=== PATIENT | female | born 1965 | race Caucasian/White ===

== ENCOUNTER 2016-07-27 16:20 | Outpatient (CLI) | payer MEDICAID ==
[~2016-07-27 16:20] MED LIST: ALBU17AE3; ALBU17AE3 IH; ALBU8.5H2 IH; ALBUTERAL NEB; ALBUTEROL NEB; AMPH30TA2 PO; ASP325TEC PO; ATOR10TA66 PO; ATR20T PO; CEPH500C PO; CTLP20T; DESV50TA; ENLP5T; FEXO180T; FRSM40T; GLMP4T PO; GUAI-371; HCTZ12.5T; INSASP10V SC; INSASP10V SQ; INSU100C4; INSU100V5 SQ; INSU100V7 SQ; INSU100V8; KCL10CCR; LIRA0.6P SQ; LIRA0.6P3 SQ; LISI20TA PO; LVT.112T; LVT.1T; METF-380 PO; METF1000 PO; METO25TA PO; MGX400T; MGX400T PO; MNTL10T; MTF500T; MTP25TSR PO; OMG1KC PO; OXYC-12 PO; PNT40TEC PO; POTA10TA36 PO; PRV20T PO; SERT100T PO; SPRN25T GT; SRTR100T PO; [UNRECOGNIZED DRUG - OTHER]; [UNRECOGNIZED DRUG - OTHER]
== END 2016-07-27 16:45 | disposition home or self-care (01) ==
LOC: SLEEP 16:20
PROVIDERS: ATTEND Nurse Practitioner Family
DX: G47.33 Obstructive sleep apnea (adult) (pediatric) (principal); E66.01 Morbid (severe) obesity due to excess calories

== ENCOUNTER → 2017-06-07 | Outpatient (CLI) | payer MEDICAID ==
[~2017-06-07] MED LIST changes: +ACET-2267 PO; +APIX5TAB PO; +BUPR200T PO; +CARV25TA PO; +MULT-35 PO; +PANT40TA3 PO; +RT-ALBUINH IH; +SERT100T8 PO
--- NOTE | 2017-06-07 09:59 | Diagnostic Imaging Report ---
INDICATION: Routine screening. The current study was also evaluated with a Computer Aided Detection (CAD) system. Comparison is made with prior exam from 06/07/2015 and 09/06/2013. Scattered fibroglandular densities are identified bilaterally. Cardiac monitoring device in the posterior medial left breast remains in place. A benign-appearing nodular density in the central left breast appears stable. No new mass or malignant appearing microcalcifications are seen. There are benign calcifications present. The axillae are unremarkable. IMPRESSION: No mammographic features suspicious for malignancy identified. ACR BI-RADS Category 2: Benign findings. Result letter will be mailed to the patient. Note: At least 10% of breast cancer is not imaged by mammography. Dictated by: Dictated on workstation # [id number]
== END ==
LOC: RAD 08:07
PROVIDERS: ATTEND Nurse Practitioner Community Health
DX: Z12.31 Encounter for screening mammogram for malignant neoplasm of breast (principal)
CPT/HCPCS: 77067

== ENCOUNTER 2018-04-25 17:40 | Emergency (ER) | payer BC, MEDICAID ==
[~2018-04-25] VITALS: Ht 170.2 cm; Wt 167.8 kg
[2018-04-25] MEDS ORDERED: ASPIRIN 81 MG CHEW (CHILDREN'S ASA) PO ONE (18:00)
[2018-04-25 18:06] LABS: BASOPHILS % (AUTO) 1 % (0-10); EOSINOPHILS # (AUTO) 0.2 10^3/uL (0.0-0.3); EOSINOPHILS % (AUTO) 2 % (0-10); HEMATOCRIT 37 % (35-52); HEMOGLOBIN 12.5 G/DL (11.5-16.0); LYMPHOCYTES # (AUTO) 1.9 X 10^3 (1.0-4.0); LYMPHOCYTES % (AUTO) 23 % (12-44); MEAN CORPUSCULAR HGB CONC 34 G/DL (32-36); MEAN CORPUSCULAR VOLUME 87 FL (80-99); MEAN PLATELET VOLUME 10.2 FL (7.4-10.4); MONOCYTES # (AUTO) 0.4 X 10^3 (0.0-1.0); MONOCYTES % (AUTO) 5 % (0-12); NEUTROPHILS # (AUTO) 5.9 X 10^3 (1.8-7.8); NEUTROPHILS % (AUTO) 70 % (42-75); PLATELET COUNT 195 10^3/uL (130-400); WHITE BLOOD COUNT 8.5 10^3/uL (4.3-11.0)
--- NOTE | 2018-04-25 18:08 | ED Chest Pain ---
General Chief Complaint: Chest Pain Stated Complaint: CHEST PAIN Nursing Triage Note: PT REPORTED WAKING UP WITH CHEST PAIN THIS MORNING THAT STARTED AT 0600. 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 THIS EVENING PT WAS STILL HAVING CHEST PAIN AND HAD 2 EKGS TAKEN AND SENT OVER TO ER. Nursing Sepsis Screen: No Definite Risk Source: patient Exam Limitations: no limitations History of Present Illness Date Seen by Provider: Apr 25, 2018 Time Seen by Provider: 17:51 Initial Comments The patient presents to the ER by private conveyance with chief complaint she's been having some dull achy 6 out of 10 consistent chest pain in the center of her chest that does not radiate. She describes it as feeling like a large weight sitting on her chest. She woke up this morning with the pain about 12 hours prior to arrival. 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 She does not have a history of coronary disease although she has had a heart catheter in the pastwere placed. She is known to Dr. Hayward. She has a history of paroxysmal atrial fibrillation and is routinely on Eliquis however for the last month she has not been taking her Eliquis just all of her other medicines due to cost. She does not take aspirin or Plavix. She does have a history of asthma when she was young but she does not feel wheezy or short of breath. She wears a BiPAP at night. She says she just felt "yucky" all day. When her staff caught on the way she was behaving they ran a couple EKGs and did not find anything interesting and insisted that she come to the ER. She's had no fevers, chills, fatigue, dysuria, nausea, sweats, cough, diarrhea or constipation. She felt a little more swelling in her hands or feet today than usual. The patient does have a history of anxiety but she does not use anything for it. She has a history of GERD and is on pantoprazole. She does not notice that eating certain things makes her chest discomfort any worse. She does state that exertion which for her is minimal makes it worse. The patient has had gastric bypass and noted that a lot of her obesity hypoventilation syndrome improved after weight loss. Patient reports she had a Lync device implanted but it malfunctioned last year and is no longer working. Allergies and Home Medications Allergies Coded Allergies: sulfamethoxazole (Unverified Allergy, Unknown, 05/04/14) trimethoprim (Unverified Allergy, Unknown, 05/04/14) Home Medications Acetaminophen 500 Mg Tablet, 500-1,000 MG PO Q6H PRN for PAIN-MILD, (Reported) Albuterol Sulfate 1 Puff Puff, 2 PUFF IH Q4H PRN for SHORTNESS OF BREATH, ( Reported) 1 PUFF = 90 MCG Apixaban 5 Mg Tablet, 5 MG PO BID, (Reported) LAST FILLED #60 09-30-16 Bupropion HCl 200 Mg Tablet.er, 200 MG PO BID, (Reported) LAST FILLED #60 07-21-16 Carvedilol 25 Mg Tablet, 25 MG PO BID, (Reported) LAST FILLED #180 08-18-16 Lisinopril 20 Mg Tablet, 20 MG PO DAILY, (Reported) LAST FILLED #90 08-18-16 Multivitamin 1 Each Tablet, 1 TAB PO DAILY, (Reported) Pantoprazole Sodium 40 Mg Tablet.dr, 40 MG PO DAILY, (Reported) LAST FILLED #90 06-19-16 Sertraline HCl 100 Mg Tablet, 100 MG PO BID, (Reported) LAST FILLED #60 09-30-16 Patient Home Medication List Home Medication List Reviewed: Yes Review of Systems Review of Systems Constitutional: No chills, No dizziness, No fever, No malaise EENTM: No Blurred Vision, No Double Vision Respiratory: Denies Cough, Denies Shortness of Air, Denies SOA at Rest, Denies Wheezing Cardiovascular: See HPI, Chest Pain, Edema; Denies Irregular Heart Rate, Denies Lightheadedness, Denies Palpitations, Denies Syncope Gastrointestinal: Denies Abdominal Pain, Denies Constipated, Denies Diarrhea, Denies Nausea Genitourinary: Denies Burning, Denies Discharge Musculoskeletal: No back pain, No joint pain Skin: No pruritus, No rash Psychiatric/Neurological: Denies Headache, Denies Numbness, Denies Paresthesia Past Zbnlznn-Rilcsy-Zqnidt Hx Patient Social History Alcohol Use: Denies Use Recreational Drug Use: No Smoking Status: Former Smoker Type Used: Cigarettes Former Smoker, Quit: Nov 22, 1998 Recent Foreign Travel: No Contact w/Someone Who Travel: No Recent Infectious Disease Expo: No Recent Hopitalizations: Yes Immunizations Up To Date Tetanus Booster (TDap): Unknown PED Vaccines UTD: No Date of Pneumonia Vaccine: Feb 03, 2009 Date of Influenza Vaccine: Nov 13, 2016 Past Medical History Surgeries: Yes (CARPAL TUNNEL X2 ea hand,, Partial hysterectomy, gastric bypass) Section, Gallbladder, Hysterectomy, Orthopedic Respiratory: Yes Asthma, Sleep Apnea Currently Using BIPAP: Yes Cardiac: Yes Atrial Fibrillation, Chronic Edema/Swelling, Hypertension Neurological: No Reproductive Disorders: Yes Genitourinary: No Gastrointestinal: Yes Gastroesophageal Reflux Musculoskeletal: No Endocrine: Yes (obesity) Diabetes, Insulin dep, Hypothyroidsim HEENT: No Hearing Impairment: Denies Cancer: No Psychosocial: Yes Anxiety, Depression Integumentary: No Blood Disorders: No Adverse Reaction/Blood Tranf: No Family Medical History CVA 19 MOTHER Cardiovascular disease 19 FATHER 19 MOTHER Dementia 19 MOTHER Diabetes mellitus 19 FATHER 19 MOTHER Hypertension 19 FATHER 19 MOTHER Myocardial infarction 19 FATHER 19 MOTHER CAD Under 55 Years Old, Diabetes, Hypertension, Psychiatric Problems, Stroke Physical Exam Vital Signs Vital Signs - First Documented 04/25/18 17:40 Temp 97.0 Pulse 64 Resp 26 B/P (MAP) 190/101 (130) Pulse Ox 98 O2 Delivery Room Air Capillary Refill : Less Than 3 Seconds Height, Weight, BMI Height: 5'7.00" Weight: 370lbs. 1.0oz. 167.433900vl; 52.3 BMI Method:Stated General Appearance: WD/WN; No Anxious; Obese HEENT: PERRL/EOMI, Pharynx Normal, Moist Mucous Membranes Respiratory: Chest Non Tender, Lungs Clear, Normal Breath Sounds, No Accessory Muscle Use, No Respiratory Distress Cardiovascular: Regular Rate, Rhythm, No JVD, Normal Peripheral Pulses, Other ( trace bipedal edema) Gastrointestinal: Normal Bowel Sounds, Non Tender, Soft Extremity: Normal Capillary Refill, Normal Inspection, Pedal Edema (trace bilateral ankle) Neurologic/Psychiatric: Alert, Oriented x3, No Motor/Sensory Deficits Skin: Normal Color, Warm/Dry Progress/Results/Core Measures Results/Orders Lab Results Laboratory Tests Test 04/25/18 17:49 Range/Units White Blood Count 8.5 4.3-11.0 10^3/uL Red Blood Count 4.24 L 4.35-5.85 10^6/uL Hemoglobin 12.5 11.5-16.0 G/DL Hematocrit 37 35-52 % Mean Corpuscular Volume 87 80-99 FL Mean Corpuscular Hemoglobin 29 25-34 PG Mean Corpuscular Hemoglobin Concent 34 32-36 G/DL Red Cell Distribution Width 14.0 10.0-14.5 % Platelet Count 195 130-400 10^3/uL Mean Platelet Volume 10.2 7.4-10.4 FL Neutrophils (%) (Auto) 70 42-75 % Lymphocytes (%) (Auto) 23 12-44 % Monocytes (%) (Auto) 5 0-12 % Eosinophils (%) (Auto) 2 0-10 % Basophils (%) (Auto) 1 0-10 % Neutrophils # (Auto) 5.9 1.8-7.8 X 10^3 Lymphocytes # (Auto) 1.9 1.0-4.0 X 10^3 Monocytes # (Auto) 0.4 0.0-1.0 X 10^3 Eosinophils # (Auto) 0.2 0.0-0.3 10^3/uL Basophils # (Auto) 0.0 0.0-0.1 10^3/uL Prothrombin Time 13.2 12.2-14.7 SEC INR Comment 1.0 0.8-1.4 Activated Partial Thromboplast Time 29 24-35 SEC Sodium Level 143 135-145 MMOL/L Potassium Level 3.3 L 3.6-5.0 MMOL/L Chloride Level 108 H 98-107 MMOL/L Carbon Dioxide Level 26 21-32 MMOL/L Anion Gap 9 5-14 MMOL/L Blood Urea Nitrogen 13 7-18 MG/DL Creatinine 0.68 0.60-1.30 MG/DL Estimat Glomerular Filtration Rate > 60 BUN/Creatinine Ratio 19 Glucose Level 120 H 70-105 MG/DL Calcium Level 8.9 8.5-10.1 MG/DL Corrected Calcium 8.8 8.5-10.1 MG/DL Magnesium Level 2.0 1.8-2.4 MG/DL Total Bilirubin 0.5 0.1-1.0 MG/DL Aspartate Amino Transf (AST/SGOT) 21 5-34 U/L Alanine Aminotransferase (ALT/SGPT) 16 0-55 U/L Alkaline Phosphatase 102 40-136 U/L Myoglobin 40.4 10.0-92.0 NG/ML Troponin I < 0.028 <0.028 NG/ML B-Type Natriuretic Peptide 230.8 H <100.0 PG/ML Total Protein 7.1 6.4-8.2 GM/DL Albumin 4.1 3.2-4.5 GM/DL Lipase 28 8-78 U/L My Orders Orders - CATALINA SAHU Cbc With Automated Diff (04/25/18 18:00) Magnesium (04/25/18 18:00) Chest 1 View, Ap/Pa Only (04/25/18 18:00) Cardiac Profile 1 (04/25/18 18:00) Comprehensive Metabolic Panel (04/25/18 18:00) Myoglobin Serum (04/25/18 18:00) Protime With Inr (04/25/18 18:00) Partial Thromboplastin Time (04/25/18 18:00) O2 (04/25/18 18:00) Monitor-Rhythm Ecg Trace Only (04/25/18 18:00) Lipid Panel (04/26/18 06:00) Aspirin Chewable Tablet (Baby Aspirin Ch (04/25/18 18:00) Nitroglycerin 0.4 Mg Btl 25's (Nitrostat (04/25/18 18:00) Saline Lock/Iv-Start (04/25/18 18:00) Lipase (04/25/18 18:00) BNP (04/25/18 18:00) Medications Given in ED Current Medications Medications Dose Ordered Sig/Denia Route Start Time Stop Time Status Last Admin Dose Admin Aspirin 324 mg ONCE ONCE PO 04/25/18 18:00 04/25/18 18:02 DC 04/25/18 18:09 324 MG Nitroglycerin 0.4 mg UD PRN SL 04/25/18 18:00 04/25/18 18:37 0.4 MG Vital Signs/I&O 04/25/18 04/25/18 17:40 17:40 Temp 97.0 Pulse 64 Resp 26 B/P (MAP) 190/101 (130) Pulse Ox 98 O2 Delivery Room Air Blood Pressure Mean: 130 Progress Progress Note : Time: 18:30 Progress Note The patient's not been on her Eliquis but her symptoms are suggestive of angina. We'll give her aspirin and nitroglycerin. Her blood pressure is very high at 190/100. Her pain started at 6 out of 10 and after a dose of nitroglycerin came down to 4 out of 10. We'll give her a second dose after repeating her blood pressure. She has multiple risk factors for coronary disease including insulin-dependent diabetes, hypercholesterolemia, hypertension and but no longer a current smoker. She has a strong family history of coronary disease. EKG from urgent care was reviewed at 1625 demonstrating a 61 bpm with normal intervals and some left axis deviation but no ST elevation or depression. ED ACS 4. Low risk. If the patient also has: (1) EKG without new ischemic changes and (2) negative initial and 2-hour troponins, then this patient is safe for discharge to early outpatient follow-up investigation (or proceed to earlier inpatient testing). If EKG with ischemic changes or positive troponin, they are not low risk and require normal risk stratification. Cardiac catheterization by Dr. Hayward March 28, 2017: Mild coronary artery disease nonobstructive with a dominant circumflex system. Normal left ventricular size and systolic function with an EF of 60%. Echocardiogram by Dr. Hayward 2015: Normal left ventricular size and systolic function with an EF of 60% and diastolic dysfunction suggested by Doppler. Left atrial dilatation. Mild mitral regurg and tricuspid regurgitation. Estimated pulmonary artery pressure of 35 mmHg. Initial ECG Impression Date: Apr 25, 2018 Initial ECG Impression Time: 17:47 Initial ECG Rate: 60 Initial ECG Rhythm: Normal Sinus Initial ECG Intervals: Normal Initial ECG Impression: Normal Initial ECG Comparisson: Unchanged Comment No ST elevation or depression. Diagnostic Imaging Diagonstic Imaging: Xray Plain Films/CT/US/NM/MRI: chest Comments [facility], [place], [place] NAME: BRANDON JANSEN [facility] REC#: [id number] PT STATUS: REG ER : 1965 PHYSICIAN: CATALINA SAHU MD ADMIT DATE: 04/25/18/ER Draft Date of Exam:04/25/18 CHEST 1 VIEW, AP/PA ONLY INDICATION: Chest pain. Upright portable AP view of the chest is obtained with comparison made to study of 03/30/2017. FINDINGS: Heart size and pulmonary vascularity are at the upper limits of normal. There is no pneumothorax or consolidation. No pleural fluid is seen. IMPRESSION: Heart size and pulmonary vascularity are at the upper limits of normal. Dictated on workstation # [id number] Dict: 04/25/18 1829 Trans: 04/25/18 1832 [facility] [id number] Interpreted by: DORIS SOW MD Electronically signed by: Consults : Consulting Physician: RANJITH MERINO MD [facility]S Consults Notes Discussed the case lab imaging findings and EKGs and he feels it would be prudent given all the risk factors and improvement with the nitroglycerin for the patient to be observed overnight. Departure Impression Primary Impression: Chest pain Qualified Codes: R07.9 - Chest pain, unspecified Additional Impression: Acute coronary syndrome Disposition: ADMITTED INPATIENT Condition: Stable Transfer Time Spoke to Accepting Phy: 19:15 Transfer Progress Notes Zoila Butt [place], [place] Discussed with Hai nurse practitioner in the ER and she accepts the patient. Transfer Facility: [place], [place] Method of Transfer: EMS Departure-Patient Inst. Referrals: [facility] (PCP) Primary Care Physician FARHANA WOLFE (Family) Primary Care Physician CATALINA SAHU Apr 25, 2018 18:08
[2018-04-25] MEDS: NITROGLYCERIN 0.4 MG SL TABS BTL 25'S SL PRN ×2 (18:09→18:37)
[2018-04-25 18:10] LABS: MEAN CORPUSCULAR HEMOGLOBIN 29 PG (25-34)
[2018-04-25 18:15] LABS: PROTHROMBIN TIME PATIENT 13.2 SEC (12.2-14.7)
[2018-04-25 18:19] LABS: ALANINE AMINOTRANSFERASE 16 U/L (0-55); ALBUMIN 4.1 GM/DL (3.2-4.5); ALKALINE PHOSPHATASE 102 U/L (40-136); BILIRUBIN,TOTAL 0.5 MG/DL (0.1-1.0); BUN/CREATININE RATIO 19; CALCIUM 8.9 MG/DL (8.5-10.1); CARBON DIOXIDE 26 MMOL/L (21-32); CHLORIDE 108 MMOL/L (98-107); CREATININE SERUM 0.68 MG/DL (0.60-1.30); GFR ESTIMATED > 60; GLUCOSE 120 MG/DL (70-105); LIPASE 28 U/L (8-78); POTASSIUM 3.3 MMOL/L (3.6-5.0); SODIUM 143 MMOL/L (135-145); TOTAL PROTEIN 7.1 GM/DL (6.4-8.2)
[2018-04-25 18:25] LABS: MYOGLOBIN SERUM 40.4 NG/ML (10.0-92.0)
--- NOTE | 2018-04-25 18:33 | Diagnostic Imaging Report ---
INDICATION: Chest pain. Upright portable AP view of the chest is obtained with comparison made to study of 03/30/2017. FINDINGS: Heart size and pulmonary vascularity are at the upper limits of normal. There is no pneumothorax or consolidation. No pleural fluid is seen. IMPRESSION: Heart size and pulmonary vascularity are at the upper limits of normal. Dictated by: Dictated on workstation # [id number]
[2018-04-25] MEDS ORDERED: ACETAMINOPHEN 500 MG TAB (TYLENOL) ONE (20:44)
[2018-04-25] MEDS ORDERED: APIXABAN 5 MG (ELIQUIS) TABLET PO ONE (21:15)
[2018-04-25 22:30] VITALS: BP 147/78
== END 2018-04-25 22:30 | disposition short-term general hospital (02) ==
LOC: EDUNIT# 17:40 → ER 17:41
DX: R07.89 Other chest pain (principal); I24.9 Acute ischemic heart disease, unspecified; K21.9 Gastro-esophageal reflux disease without esophagitis; G47.30 Sleep apnea, unspecified; I48.91 Unspecified atrial fibrillation; I10 Essential (primary) hypertension; E11.9 Type 2 diabetes mellitus without complications; E03.9 Hypothyroidism, unspecified; F41.9 Anxiety disorder, unspecified; F32.9 Major depressive disorder, single episode, unspecified; E66.9 Obesity, unspecified; J45.909 Unspecified asthma, uncomplicated; Z98.84 Bariatric surgery status; Z88.2 Allergy status to sulfonamides; Z88.8 Allergy status to other drugs, medicaments and biological substances; Z82.49 Family history of ischemic heart disease and other diseases of the circulatory system; Z68.43 Body mass index [BMI] 50.0-59.9, adult; Z87.891 Personal history of nicotine dependence; Z79.51 Long term (current) use of inhaled steroids; Z79.01 Long term (current) use of anticoagulants; Z98.890 Other specified postprocedural states; Z90.711 Acquired absence of uterus with remaining cervical stump
CPT/HCPCS: 36415; 71045; 80053; 83690; 83735; 83874; 83880; 84484; 85025; 85610; 85730; 93005; 93041

== ENCOUNTER → 2020-01-17 | Outpatient (CLI) | payer BC, OTHER ==
[~2020-01-17] VITALS: Ht 175 cm; Wt 180.0 kg
[~2020-01-17] MED LIST changes: +CATHETER FLUSH 10 ML SYR IV PRN; -PANT40TA3 PO; +PANT40TA52 PO; +REGADENOSON 0.4 MG/5 ML SYR (LEXISCAN) IV ONE
[2020-01-17 13:06] VITALS: BP 157/85
--- NOTE | 2020-01-17 15:34 | Cardiology Stress Test Report ---
Stress Test Report Date of Procedure/Referring: Date of Procedure: Jan 17, 2020 PCP Dennys Hayward MD Admitting Physician Center/[facility] Indications: PAF Baseline Heart Rate: 65 Baseline Blood Pressure: Blood Pressure Systolic: 157 Blood Pressure Diastolic: 85 Baseline Vitals Vital Signs Date Time Temp Pulse Resp B/P (MAP) Pulse Ox O2 Delivery O2 Flow Rate FiO2 01/17/20 13:06 65 157/85 (109) 99 Room Air Baseline EKG: Baseline EKG: normal sinus rhythm Summary After explaining the procedure to the patient, she signed a consent and then brought to the stress nuclear laboratory. Patient received 0.4 mg Lexiscan for stress test, ECG, heart rate and blood pressure were monitored continuously. Resting and stress dose of radio tracer were injected, imaging was acquired and reviewed in short axis, horizontal long axis and vertical long axis views. TID: 1.06 SSS: 9 SDS: 5 EF: 59 1. Patient tolerated Lexiscan well 2. Breast attenuation with reversible ischemia involving the whole anterior wall and anterolateral wall 3. Normal left ventricular size, systolic function is normal, EF 59 percent DENNYS HAYWARD MD Jan 17, 2020 15:34
== END ==
LOC: CARD 12:00
PROVIDERS: ATTEND Internal Medicine Cardiovascular Disease
DX: I48.0 Paroxysmal atrial fibrillation (principal); I10 Essential (primary) hypertension; E11.9 Type 2 diabetes mellitus without complications; G47.33 Obstructive sleep apnea (adult) (pediatric)
CPT/HCPCS: 78452; 93017; A9502

== ENCOUNTER 2020-01-31 13:00 | Day surgery (SDC) | payer OTHER ==
[~2020-01-31] VITALS: Ht 170 cm; Wt 182.0 kg
[2020-01-31] VITALS (9 sets, daily range): BP systolic 126–151; BP diastolic 67–87
[2020-01-31 11:54] LABS: HEMOGLOBIN 12.9 g/dL (11.5-16.0); MEAN PLATELET VOLUME 10.1 fL (9.0-12.2); WHITE BLOOD COUNT 7.8 10^3/uL (4.3-11.0)
--- NOTE | 2020-01-31 11:58 | Diagnostic Imaging Report ---
INDICATION: ABN STRESS,CP,CAD,AFIB,HTN,HLP,DM,COPD COMPARISON: 04/25/2018 FINDINGS: Single frontal view of the chest demonstrates normal heart size and pulmonary vascularity. The lungs are well aerated and clear. No large pleural effusion or pneumothorax is seen. The visualized osseous structures show no acute abnormalities. IMPRESSION: 1. No acute cardiopulmonary process. Dictated by: Dictated on workstation # [id number]
[2020-01-31 12:15] LABS: ALANINE AMINOTRANSFERASE 19 U/L (0-55); ALBUMIN 3.9 GM/DL (3.2-4.5); ALKALINE PHOSPHATASE 111 U/L (40-136); BILIRUBIN,TOTAL 0.7 MG/DL (0.1-1.0); BUN/CREATININE RATIO 25; CALCIUM 8.7 MG/DL (8.5-10.1); CARBON DIOXIDE 27 MMOL/L (21-32); CHLORIDE 103 MMOL/L (98-107); CHOLESTEROL 170 MG/DL (< 200); CREATININE SERUM 0.76 MG/DL (0.60-1.30); GFR ESTIMATED > 60; GLUCOSE 230 MG/DL (70-105); HDL CHOLESTEROL 62 MG/DL (40-60); SODIUM 138 MMOL/L (135-145); TOTAL PROTEIN 7.4 GM/DL (6.4-8.2); TRIGLYCERIDES 130 MG/DL (<150); VLDL CHOLESTEROL 26 MG/DL (5-40)
--- NOTE | 2020-01-31 12:21 | NUR ---
I SPOKE WITH THE PATIENT, CALLED [facility] AND [facility] TO COMPLETE THIS MED REC. FILL DATES FROM [facility]: 01/12/2020 PANTOPRAZOLE 40MG #30/30DS 01/12/2020 CARVEDILOL 25MG #60/30DS 01/12/2020 ELIQUIS 5MG #60/30DS 01/12/2020 LISINOPRIL 40MG #30/30DS 01/15/2020 HYDROCHLOROTHIAZIDE 25MG #90/90DS 01/23/2020 METFORMIN 1000MG #42/30DS 01/24/2020 FLECAINIDE 100MG #60/30DS FILL DATES FROM [facility]: 11/30/2019 SERTRALINE 100MG #90/30DS OTC: TYLENOL MULTIVITAMIN
[~2020-01-31 13:00] MED LIST changes: -CATHETER FLUSH 10 ML SYR IV PRN; +FLEC100T PO; +HEParin (CATH LAB) 2,000 ML IV ONE; +HYDR25TA4 PO; +LIDOCAINE 1% INJ 20 ML 20 ML VIAL ONE; +LISI40TA PO; +METF-399 PO; +MULT-1136 PO; +NS IV 1000 ML 1,000 ML IV SCH; +NS IV 1000 ML 1,000 ML ONE; -REGADENOSON 0.4 MG/5 ML SYR (LEXISCAN) IV ONE
[2020-01-31] MEDS ORDERED: VERAPAMIL 5 MG/2 ML (CALAN) VIAL IV ONE (13:10)
[2020-01-31] MEDS ORDERED: HEParin 1000 UNIT/ML (10ML VIAL) FOR BOLUS ONE (13:10)
[2020-01-31] MEDS ORDERED: MIDAZOLAM 5 MG/5 ML (VERSED) VIAL ONE (13:10)
[2020-01-31] MEDS ORDERED: fentaNYL INJECTION 100 MCG/2 ML AMP ONE ×2 (13:10→13:49)
[2020-01-31] MEDS ORDERED: NITRO DRIP 25000 MCG/D5W 250 ML IV ONE (13:10)
--- NOTE | 2020-01-31 14:17 | Cardiac Procedure Note-CS/ASA ---
Pre-Procedure Note Pre-Op Procedure Note H&P Reviewed The H&P was reviewed, patient examined and no changes noted. Date H&P Reviewed: Jan 31, 2020 Time H&P Reviewed: 12:00 Conscious Sedation Pre-Proced Time 12:00 ASA Score 3 For ASA 3 and 4: Consider anesthesia and medical clearance. Also, for patients with a history of failed moderate sedation consider anesthesia. Airway Lungs Heart ASA score ASA 1: a normal healthy patient ASA 2: a patient with a mild systemic disease (mid diabetes, controlled hypertension, obesity x ASA 3: a patient with a severe systemic disease that limits activity (angina, COPD, prior Myocardial infarction) ASA 4: a patient with an incapacitating disease that is a constant threat to life (CHF, renal failure) ASA 5: a moribund patient not expected to survive 24 hrs. (ruptured aneurysm) ASA 6: a declared brain- patient whose organs are being harvested. For emergent operations, add the letter E after the classification Mallampati Classification Grade 3 Sedation Plan Analgesia, Amnesia, Plan communicated to team members, Discussed options with patient/fam, Discussed risks with patient/fam The patient is an appropriate candidate to undergo the planned procedure, sedation, and anesthesia. The patient immediately re-assessed prior to indication. DENNYS ROSE MD Jan 31, 2020 2:17 pm
--- NOTE | 2020-01-31 14:21 | Cardiac Cath Report ---
Cardiac Cath Report Physician (s)/Oceanographer Geological (s) Physician DENNYS ROSE MD Pre-Procedure Diagnosis Pre-Procedure Diagnosis: Coronary artery disease Post-Procedure Note Procedure Start Date: Jan 31, 2020 Name of Procedure: Left heart catheterization Findings/Procedure Note PROCEDURE NOTE: 54-year-old lady with history of [id number] coronary artery disease, has been having chest pain, had an abnormal stress test, scheduled for cardiac catheterization possible PTCA After explaining the procedure to the patient, all pros and cons were explained, all questions were answered. The patient signed the consent and then she was placed on the cardiac catheterization laboratory. Groin was prepped SL fashion local anesthesia was used. Sheath placed in the right radial artery. [place] catheter was advanced to the left carotid system and angiogram was done, I was unable to intubate the right coronary system with that There are I exchanged over long wire into FR catheter advanced to the right coronary artery and angiogram was done then prolapsed of the left ventricular cavity and pressure was measured no left ventriculogram was done. At the end of the procedure the sheath was removed. Vascular band was used FINDINGS: Hemodynamics LV 145/15, end-diastolic pressure 15 Aorta 129/74 mean of 97 ANATOMY: Left Main almost absent left main, almost separate ostium of the LAD and circumf genet system Left Anterior Descending is slightly tortuous with mild disease nonobstructive disease Left Circumflex is dominant with mild disease nonobstructive disease Right Coronory Artery has mild disease nonobstructive disease LV Gram was not done, pressure was measured CONCLUSION: 1. Mild coronary artery disease nonobstructive disease 2. Normal left ventricular end-diastolic pressure DISCUSSION AND RECOMMENDATION: Medical therapy is recommended no intervention is warranted Anesthesia Type: Conscious Sedation Estimated blood loss (mL): 10 ml Contrast Amount: 60 ml Total Radiation Dose: 804 mGy Post-Procedure Diagnosis Post-operative diagnosis: Chest pain Coronary artery disease Hypertension Hyperlipidemia DENNYS ROSE MD Jan 31, 2020 2:21 pm
[2020-01-31] MEDS ORDERED: METF-399 PO (14:22)
--- NOTE | 2020-01-31 14:23 | Discharge Inst-Post CATH ---
Discharge Inst-CATH/EP Problems Reviewed?: Yes Post Cardiac Cath/EP D/C Inst Follow Up/Plan Hold metformin for [address] Hayward's office in 4-8 weeks <b>CARDIAC CATH/EP PROCEDURE DISCHARGE INSTRUCTIONS</b> ACTIVITY * Go Home directly and rest. * Limit activity of the leg (or wrist if it was used) for 7 days including aerobics, swimming, jogging, bicycling, etc. * Restrict stair-climbing for 7 days if possible, if not, climb up with your non-cath leg, then bring together on the same step. * Avoid lifting, pushing, pulling or excessive movement of the affected extremity for 7 days. * Customary sexual activity may be resumed after 2 days-use caution not to use a position that strains or causes pain to the affected extremity. * No driving for 24 hours. * NO SMOKING. * Avoid straining for bowel movements for 7 days. * Gentle walking on level ground is allowed. * Returning to work will depend on the type of procedure and the results. Your doctor will discuss this with you. CALL YOUR DOCTOR FOR ANY OF THE FOLLOWING: *If bleeding from the puncture site occurs- Apply gentle pressure to site with clean cloth and call your doctor or EMS. * If a knot or lump forms under the skin, increases in size, or causes pain. * If bruising appears to be worsening or moving further down your leg instead of disappearing. * Temperature above 101 F. CARE OF YOUR GROIN INCISION; * Bruising or purple discoloration of the skin near the puncture site is common. * You may shower only, no bathtub bathing for 5 days. Be careful to avoid slipping as your leg may feel stiff. * If a closure device was used on your femoral artery, please see the attached guide regarding care of the device and your leg. * Leave dressing on FOR 24 hours. CARE OF YOUR WRIST INCISION; * Bruising or purple discoloration of the skin near the puncture site is common. * You may shower. * DO NOT submerge wrist. * Leave dressing on FOR 24 hours. DENNYS HAYWARD MD Jan 31, 2020 2:23 pm
[2020-01-31] MEDS ORDERED: NS IV 1000 ML 1,000 ML IV SCH (14:30)
== END 2020-01-31 17:00 | disposition home or self-care (01) ==
LOC: CATH 13:00 → SDC 14:24 → CATH 17:00
PROVIDERS: ATTEND Internal Medicine Cardiovascular Disease
DX: I25.10 Atherosclerotic heart disease of native coronary artery without angina pectoris (principal); I10 Essential (primary) hypertension; E78.5 Hyperlipidemia, unspecified; Z88.6 Allergy status to analgesic agent; I48.0 Paroxysmal atrial fibrillation; E66.01 Morbid (severe) obesity due to excess calories; E03.9 Hypothyroidism, unspecified; E11.9 Type 2 diabetes mellitus without complications; G47.33 Obstructive sleep apnea (adult) (pediatric); J44.9 Chronic obstructive pulmonary disease, unspecified; F32.9 Major depressive disorder, single episode, unspecified; Z79.01 Long term (current) use of anticoagulants; Z90.49 Acquired absence of other specified parts of digestive tract; Z87.891 Personal history of nicotine dependence; Z88.2 Allergy status to sulfonamides; Z88.1 Allergy status to other antibiotic agents
CPT/HCPCS: 71045; 80053; 80061; 85027; 85610; 85730; 87081; 93458; C1894; 36415

== ENCOUNTER → 2020-02-20 | Outpatient (CLI) | payer OTHER ==
[~2020-02-20] VITALS: Ht 170.2 cm; Wt 182.7 kg
[~2020-02-20] MED LIST changes: +BAMLANIVIMAB 700 MG in NS 200 ML IV ONE; +EPINEPHrine INJECTION 1 MG/ML AMP IM PRN; -HEParin (CATH LAB) 2,000 ML IV ONE; -LIDOCAINE 1% INJ 20 ML 20 ML VIAL ONE; -NS IV 1000 ML 1,000 ML IV SCH; -NS IV 1000 ML 1,000 ML ONE; +diphenhydrAMINE 50 MG/ML INJ (BENADRYL) IV PRN
[2020-02-20 08:27] VITALS: BP 193/69
[2020-02-20 09:57] VITALS: BP 153/72
[2020-02-20 11:09] VITALS: BP 157/73
== END ==
LOC: INFUSION 08:13
PROVIDERS: ATTEND Nurse Practitioner Family
DX: U07.1 COVID-19 (principal)

== ENCOUNTER 2020-10-09 12:56 | Emergency (ER) | payer BC ==
[~2020-10-09] VITALS: Ht 170.1 cm; Wt 171.4 kg
[~2020-10-09 12:56] MED LIST changes: -BAMLANIVIMAB 700 MG in NS 200 ML IV ONE; -BUPR200T PO; +BUPR200T3 PO; -EPINEPHrine INJECTION 1 MG/ML AMP IM PRN; -LISI40TA PO; +LISI40TA9 PO; +SERT-414 PO; -SERT100T8 PO; -diphenhydrAMINE 50 MG/ML INJ (BENADRYL) IV PRN
[2020-10-09 13:12] LABS: BASOPHILS # (AUTO) 0.1 10^3/uL (0.0-0.1); BASOPHILS % (AUTO) 1 % (0-10); EOSINOPHILS # (AUTO) 0.2 10^3/uL (0.0-0.3); EOSINOPHILS % (AUTO) 1 % (0-10); HEMATOCRIT 45 % (35-52); HEMOGLOBIN 15.1 g/dL (11.5-16.0); LYMPHOCYTES # (AUTO) 1.4 10^3/uL (1.0-4.0); LYMPHOCYTES % (AUTO) 11 % (12-44); MEAN CORPUSCULAR HEMOGLOBIN 29 pg (25-34); MEAN CORPUSCULAR HGB CONC 34 g/dL (32-36); MEAN CORPUSCULAR VOLUME 87 fL (80-99); MONOCYTES # (AUTO) 0.5 10^3/uL (0.0-1.0); MONOCYTES % (AUTO) 4 % (0-12); NEUTROPHILS # (AUTO) 10.6 10^3/uL (1.8-7.8); NEUTROPHILS % (AUTO) 83 % (42-75); PLATELET COUNT 266 10^3/uL (130-400); WHITE BLOOD COUNT 12.8 10^3/uL (4.3-11.0)
[2020-10-09 13:30] LABS: ALBUMIN 4.3 GM/DL (3.2-4.5)
[2020-10-09 13:31] LABS: POTASSIUM 4.4 MMOL/L (3.6-5.0)
[2020-10-09 13:32] LABS: CALCIUM 9.5 MG/DL (8.5-10.1)
[2020-10-09 13:33] LABS: TOTAL PROTEIN 7.8 GM/DL (6.4-8.2)
[2020-10-09 13:35] LABS: BILIRUBIN,TOTAL 0.7 MG/DL (0.1-1.0); PROTHROMBIN TIME PATIENT 13.7 SEC (12.2-14.7)
[2020-10-09 13:37] LABS: CREATININE SERUM 0.86 MG/DL (0.60-1.30)
[2020-10-09 13:40] LABS: MAGNESIUM 1.8 MG/DL (1.6-2.4)
--- NOTE | 2020-10-09 14:08 | ED Chest Pain ---
General Chief Complaint: Cardiac/General Problems Stated Complaint: CHEST PRESSURE, Nursing Triage Note: Pt sent to ED from urgent care. Pt reports feeling genral malaise this week and symptoms have worsened today. Pt reports, "My afib has been acting up." Pt denies pain, but reports, "Chest pressure." Source: patient Exam Limitations: no limitations History of Present Illness Date Seen by Provider: Oct 09, 2020 Time Seen by Provider: 13:04 Initial Comments This 54-year-old woman presents to the emergency room with complaints of chest pressure over the last several days. She also has had general malaise. She has history of paroxysmal atrial fibrillation and thinks she may have had some episodes throughout the past week including earlier today. She is in sinus rhythm upon presentation to the ER. She does take Eliquis and flecainide. Dr. Hayward is her physical medicine teacher. She has an implanted loop recorder but the battery is . She therefore cannot interrogate her rhythm. Review of her chart notes a angiography performed last January showing no obstructive disease. EKG demonstrates no significant change or ischemic ST changes. Allergies and Home Medications Allergies Coded Allergies: sulfamethoxazole (Unverified Allergy, Unknown, 05/04/14) trimethoprim (Unverified Allergy, Unknown, 05/04/14) Home Medications Acetaminophen 500 Mg Tablet, 500-1,000 MG PO Q6H PRN for PAIN-MILD, (Reported) Apixaban 5 Mg Tablet, 5 MG PO BID, (Reported) Carvedilol 25 Mg Tablet, 25 MG PO BID, (Reported) Flecainide Acetate 100 Mg Tablet, 100 MG PO BID, (Reported) Hydrochlorothiazide 25 Mg Tablet, 25 MG PO DAILY, (Reported) Lisinopril 40 Mg Tablet, 40 MG PO DAILY, (Reported) Metformin HCl 1,000 Mg Tablet, 1,000 MG PO DAILY Hold metformin for 48 hours Prescribed by: DENNYS HAYWARD on 01/31/20 1422 Multivitamin 1 Each Tablet, 1 EACH PO DAILY, (Reported) Pantoprazole Sodium 40 Mg Tablet.dr, 40 MG PO DAILY, (Reported) Sertraline HCl 100 Mg Tablet, 300 MG PO DAILY, (Reported) Patient Home Medication List Home Medication List Reviewed: Yes Review of Systems Review of Systems Constitutional: see HPI EENTM: No Symptoms Reported Respiratory: No Symptoms Reported Cardiovascular: See HPI Gastrointestinal: No Symptoms Reported Genitourinary: No Symptoms Reported Musculoskeletal: no symptoms reported Skin: no symptoms reported Psychiatric/Neurological: No Symptoms Reported Endocrine: No Symptoms Reported Hematologic/Lymphatic: No Symptoms Reported Past Jgnzhxz-Chlyep-Wpllqi Hx Patient Social History Tobacco Use?: No Substance use?: No Alcohol Use?: No Pt feels they are or have been: No Immunizations Up To Date Tetanus Booster (TDap): Unknown PED Vaccines UTD: No First/Initial COVID19 Vaccinat: jan 2020 Second COVID19 Vaccination Abhinav: may 2020 COVID19 Vaccine 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: [employer] Seasonal Allergies Seasonal Allergies: No Past Medical History Surgeries: Yes (CARPAL TUNNEL X2 ea hand,, Partial hysterectomy, gastric bypass) Section, Gallbladder, Hysterectomy, Orthopedic Respiratory: Yes Asthma, Sleep Apnea Currently Using BIPAP: Yes Cardiac: Yes Atrial Fibrillation, Chronic Edema/Swelling, Hypertension Neurological: No Reproductive Disorders: Yes Genitourinary: No Gastrointestinal: Yes Gastroesophageal Reflux Musculoskeletal: No Endocrine: Yes (obesity) Diabetes, Insulin dep, Hypothyroidsim HEENT: No Hearing Impairment: Denies Cancer: No Psychosocial: Yes Anxiety, Depression Integumentary: No Blood Disorders: No Adverse Reaction/Blood Tranf: No Family Medical History Reviewed Nursing Family Hx CVA 19 MOTHER Cardiovascular disease 19 FATHER 19 MOTHER Dementia 19 MOTHER Diabetes mellitus 19 FATHER 19 MOTHER Hypertension 19 FATHER 19 MOTHER Myocardial infarction 19 FATHER 19 MOTHER CAD Under 55 Years Old, Diabetes, Hypertension, Psychiatric Problems, Stroke Physical Exam Vital Signs Vital Signs - First Documented 10/09/20 12:58 Temp 37.4 Pulse 75 Resp 22 B/P (MAP) 146/83 (104) Pulse Ox 97 O2 Delivery Room Air Capillary Refill : Less Than 3 Seconds Height, Weight, BMI Height: 5'7.00" Weight: 370lbs. 1.0oz. 167.478760kl; 59.00 BMI Method:Stated General Appearance: No Apparent Distress, WD/WN, Obese HEENT: PERRL/EOMI, Normal ENT Inspection Neck: Normal Inspection Respiratory: Chest Non Tender, Lungs Clear, Normal Breath Sounds, No Accessory Muscle Use, No Respiratory Distress Cardiovascular: Regular Rate, Rhythm, No Edema, No Murmur Gastrointestinal: Normal Bowel Sounds, Non Tender, Soft Extremity: Normal Inspection, No Pedal Edema Neurologic/Psychiatric: Alert, Oriented x3, No Motor/Sensory Deficits, Normal Mood/Affect Skin: Normal Color, Warm/Dry Progress/Results/Core Measures Results/Orders Lab Results Laboratory Tests Test 10/09/20 13:00 Range/Units White Blood Count 12.8 H 4.3-11.0 10^3/uL Red Blood Count 5.14 H 3.80-5.11 10^6/uL Hemoglobin 15.1 11.5-16.0 g/dL Hematocrit 45 35-52 % Mean Corpuscular Volume 87 80-99 fL Mean Corpuscular Hemoglobin 29 25-34 pg Mean Corpuscular Hemoglobin Concent 34 32-36 g/dL Red Cell Distribution Width 13.9 10.0-14.5 % Platelet Count 266 130-400 10^3/uL Mean Platelet Volume 10.0 9.0-12.2 fL Immature Granulocyte % (Auto) 0 % Neutrophils (%) (Auto) 83 H 42-75 % Lymphocytes (%) (Auto) 11 L 12-44 % Monocytes (%) (Auto) 4 0-12 % Eosinophils (%) (Auto) 1 0-10 % Basophils (%) (Auto) 1 0-10 % Neutrophils # (Auto) 10.6 H 1.8-7.8 10^3/uL Lymphocytes # (Auto) 1.4 1.0-4.0 10^3/uL Monocytes # (Auto) 0.5 0.0-1.0 10^3/uL Eosinophils # (Auto) 0.2 0.0-0.3 10^3/uL Basophils # (Auto) 0.1 0.0-0.1 10^3/uL Immature Granulocyte # (Auto) 0.0 0.0-0.1 10^3/uL Prothrombin Time 13.7 12.2-14.7 SEC INR Comment 1.0 0.8-1.4 Activated Partial Thromboplast Time 28 24-35 SEC D-Dimer <= 0.27 0.00-0.49 UG/ML Sodium Level 140 135-145 MMOL/L Potassium Level 4.4 3.6-5.0 MMOL/L Chloride Level 103 98-107 MMOL/L Carbon Dioxide Level 26 21-32 MMOL/L Anion Gap 11 5-14 MMOL/L Blood Urea Nitrogen 14 7-18 MG/DL Creatinine 0.86 0.60-1.30 MG/DL Estimat Glomerular Filtration Rate 69 BUN/Creatinine Ratio 16 Glucose Level 153 H 70-105 MG/DL Calcium Level 9.5 8.5-10.1 MG/DL Corrected Calcium 9.3 8.5-10.1 MG/DL Magnesium Level 1.8 1.6-2.4 MG/DL Total Bilirubin 0.7 0.1-1.0 MG/DL Aspartate Amino Transf (AST/SGOT) 25 5-34 U/L Alanine Aminotransferase (ALT/SGPT) 28 0-55 U/L Alkaline Phosphatase 110 40-136 U/L Myoglobin 46.7 10.0-92.0 NG/ML Troponin I < 0.028 <0.028 NG/ML B-Type Natriuretic Peptide 68.2 <100.0 PG/ML Total Protein 7.8 6.4-8.2 GM/DL Albumin 4.3 3.2-4.5 GM/DL Vital Signs/I&O 10/09/20 12:58 Temp 37.4 Pulse 75 Resp 22 B/P (MAP) 146/83 (104) Pulse Ox 97 O2 Delivery Room Air Blood Pressure Mean: 104 Initial ECG Impression Date: Oct 09, 2020 Initial ECG Impression Time: 13:02 Initial ECG Rate: 74 Comment Sinus rhythm with right bundle branch block. Probable LVH. No ST elevation or depression. Diagnostic Imaging Diagonstic Imaging: Xray Plain Films/CT/US/NM/MRI: chest Comments Chest x-ray viewed by me and report reviewed. See report below: NAME: BRANDON JANSEN [facility] REC#: [id number] PT STATUS: REG ER : 1965 PHYSICIAN: FELICIA PEDERSEN APRN ADMIT DATE: 10/09/20/ER * Draft Date of Exam:10/09/20 CHEST 1 VIEW, AP/PA ONLY EXAMINATION: Chest 1 view HISTORY: Chest pain COMPARISON: 01/31/2020. FINDINGS: Heart size and pulmonary vasculature are normal. Low lung volumes without consolidation, pleural effusion, or pneumothorax. The osseous structures are intact. IMPRESSION: 1. No acute radiographic abnormality in the chest. Dictated on workstation # [id number] Dict: 10/09/20 1401 Trans: 10/09/20 1406 [id number] [id number] Interpreted by: KENDRA STEELE DO Departure Impression Primary Impression: Chest pressure Additional Impression: Paroxysmal atrial fibrillation Disposition: 01 HOME, SELF-CARE Condition: Improved Departure-Patient Inst. Decision time for Depature: 14:09 Referrals: [facility] (PCP) Primary Care Physician FARHANA WOLFE (Family) Primary Care Physician Patient Instructions: Chest Pain Add. Discharge Instructions: Follow-up with Dr. Hayward as soon as possible regarding your chest pressure and your loop recorder battery. Continue your therapies as previously prescribed until otherwise directed. Call with questions or concerns. Return to the ER if you have worsening symptoms. All discharge instructions reviewed with patient and/or family. Voiced u nderstanding. CYRUS ELDRIDGE MD Oct 09, 2020 14:08
[2020-10-09 14:15] VITALS: BP 108/62
== END 2020-10-09 14:15 | disposition home or self-care (01) ==
LOC: EDUNIT# 12:56 → ER 12:59
DX: I48.0 Paroxysmal atrial fibrillation (principal); I10 Essential (primary) hypertension; J45.909 Unspecified asthma, uncomplicated; G47.30 Sleep apnea, unspecified; F41.9 Anxiety disorder, unspecified; F32.9 Major depressive disorder, single episode, unspecified; E66.9 Obesity, unspecified; K21.9 Gastro-esophageal reflux disease without esophagitis; E11.9 Type 2 diabetes mellitus without complications; Z68.43 Body mass index [BMI] 50.0-59.9, adult; Z79.899 Other long term (current) drug therapy; Z79.01 Long term (current) use of anticoagulants
CPT/HCPCS: 36415; 71045; 80053; 83735; 83874; 83880; 84484; 85025; 85379; 85610; 85730; 93005; 93041

== ENCOUNTER → 2020-11-05 | Outpatient (CLI) | payer BC | LOC: CARD 14:01 | PROVIDERS: ATTEND Physician Assistant | DX: I10 Essential (primary) hypertension (principal); I25.10 Atherosclerotic heart disease of native coronary artery without angina pectoris; I08.3 Combined rheumatic disorders of mitral, aortic and tricuspid valves | CPT/HCPCS: 93306 ==

== ENCOUNTER → 2020-12-24 | Outpatient (CLI) | payer BC ==
--- NOTE | 2020-12-24 13:06 | Diagnostic Imaging Report ---
INDICATION: Routine screening. COMPARISON: 06/07/2017 and 06/07/2015. TECHNIQUE: 2D and 3D bilateral screening mammography was performed with CAD. FINDINGS: Scattered fibroglandular densities are identified bilaterally. A cardiac device overlies the medial left breast. Benign nodules in both breasts appear stable. No new mass or malignant-appearing microcalcifications are seen. The axillae are unremarkable. IMPRESSION: No mammographic features suspicious for malignancy are identified. ACR BI-RADS Category 2: Benign findings. Result letter will be mailed to the patient. Note: At least 10% of breast cancer is not imaged by mammography. Dictated by: Dictated on workstation # [id number]
== END ==
LOC: RAD 07:45
PROVIDERS: ATTEND Nurse Practitioner Family
DX: Z12.31 Encounter for screening mammogram for malignant neoplasm of breast (principal)
CPT/HCPCS: 77063; 77067

== ENCOUNTER 2022-05-01 20:33 | Outpatient (CLI) | payer BC ==
[~2022-05-01 20:33] MED LIST changes: +ALBU8.5H6 IH; -BUPR200T3 PO; +BUPR200T7 PO; -RT-ALBUINH IH
== END 2022-05-02 05:30 | disposition home or self-care (01) ==
LOC: SLEEP 20:33
PROVIDERS: ATTEND Nurse Practitioner Family
DX: G47.33 Obstructive sleep apnea (adult) (pediatric) (principal); G47.10 Hypersomnia, unspecified; E66.01 Morbid (severe) obesity due to excess calories; I10 Essential (primary) hypertension; Z86.79 Personal history of other diseases of the circulatory system
CPT/HCPCS: 95810